=== PATIENT | female | born 1960 | race Caucasian/White ===

== ENCOUNTER 2017-05-02 16:14 | Emergency (ER) | payer BC ==
[2017-05-02] MEDS: CLINDAMYCIN 150 MG CAP PO ×2 (19:56)
[2017-05-02] MEDS: BUPIVACAINE HCL 0.5% 10 ML VIAL SC ×2 (19:56)
[2017-05-02] MEDS: PERCOCET 5MG/325MG TAB PO ×2 (20:15)
== END 2017-05-02 20:38 | disposition home or self-care (01) ==
LOC: M ED 16:14
DX: K02.9 Dental caries, unspecified (principal); K08.89 Other specified disorders of teeth and supporting structures; S02.5XXA Fracture of tooth (traumatic), initial encounter for closed fracture; X58.XXXA Exposure to other specified factors, initial encounter; Y92.9 Unspecified place or not applicable; Y93.9 Activity, unspecified; J45.909 Unspecified asthma, uncomplicated; E03.9 Hypothyroidism, unspecified; F41.9 Anxiety disorder, unspecified; M19.90 Unspecified osteoarthritis, unspecified site; Z79.899 Other long term (current) drug therapy; Z88.0 Allergy status to penicillin
CPT/HCPCS: 64400; 99283

== ENCOUNTER → 2017-06-12 | Outpatient (REF) | payer BC ==
[2017-06-12 16:22] LABS: INFLUENZA A AMPLIFICATION NEGATIVE (NEGATIVE); INFLUENZA B AMPLIFICATION NEGATIVE (NEGATIVE); RSV AMPLIFICATION NEGATIVE (NEGATIVE)
== END ==
LOC: M LAB REF 15:40
DX: J11.1 Influenza due to unidentified influenza virus with other respiratory manifestations (principal)
CPT/HCPCS: 87631

== ENCOUNTER → 2018-07-12 | Outpatient (REF) | payer BC ==
[~2018-07-12] MED LIST: ALBU2TA PO; BACL1TAB9 PO; CLEO300C2 PO; DULO30CA PO; EXCETAB80 PO; FIOR1CAP PO; FLON27.5; GLUC100020 PO; NORT50CA; ONDA4TAB5; ZONI100C2 PO
[2018-07-12 21:21] LABS: INFLUENZA A AMPLIFICATION NEGATIVE (NEGATIVE); INFLUENZA B AMPLIFICATION NEGATIVE (NEGATIVE)
== END ==
LOC: M LAB REF 18:49
PROVIDERS: ATTEND Physician Assistant
DX: J11.1 Influenza due to unidentified influenza virus with other respiratory manifestations (principal)

== ENCOUNTER → 2019-08-08 | Outpatient (CLI) | payer BC ==
[~2019-08-08] MED LIST changes: -DULO30CA PO; +DULO30CA9 PO; +ONDA-83; -ONDA4TAB5; +ZONI100C17 PO; -ZONI100C2 PO
== END ==
LOC: M LABSMTC 11:02
PROVIDERS: ATTEND Family Medicine
DX: Z11.59 Encounter for screening for other viral diseases (principal); Z20.828 Contact with and (suspected) exposure to other viral communicable diseases

== ENCOUNTER → 2019-08-17 | Outpatient (REF) | payer BC | LOC: M LAB REF 13:44 | PROVIDERS: ATTEND Physician Assistant | DX: R50.9 Fever, unspecified (principal) | CPT/HCPCS: 87486; 87581; 87633; 87798; U0002 ==

== ENCOUNTER 2020-05-28 20:09 | Emergency (ER) | payer BC ==
[~2020-05-28] VITALS: Ht 165.1 cm; Wt 97.6 kg
[2020-05-28] MEDS ORDERED: DOXY100C37 (20:26)
[2020-05-28] MEDS ORDERED: AIMO70IN2 (20:26)
[2020-05-28] MEDS ORDERED: VIRT1SOL13 (20:26)
--- OUTSIDE RECORDS SUMMARY | 2020-05-28 20:37 | CCD | Continuity of Care Document ---
Author Author Hillary BINGHAM RN CHARGE Organization Unknown Address [address] [place] [address] [place] [address] Phone [phone] Care Team Providers Care Accredited Farm Manager Name Role Phone [employer] [phone] Problems Description No Information Available Social History Type Date Description Comments Sex Unknown ETOH Use Denies alcohol use Tobacco Use Start: Unknown Patient has never smoked Tobacco Use Start: Unknown The patient has never vaped Smoking Status Reviewed: 05/17/20 The patient has never vaped Allergies, Adverse Reactions, Alerts Active Allergies Reaction Severity Comments Date Penicillins itchy 01/29/2020 Medications Active Medications SIG Qnty Indications Ordering Provide r Date Doxycycline Monohydrate 100mg Tabl ets 1 tab by mouth twice a day for 10 days 20tabs J01.10 Pepe Tolbert JR., M.D. 05/14/2020 Zonisamide 100mg Capsules bid Unknown Cymbalta 60mg Caps DR Jamie mcgrath d Unknown Glucosamine Chondroitin 1500 Complex 1500Com Capsules ad Unknown Xyzal Allergy 24HR 5mg Tablets 1 by mouth every day Unknown Super B Complex/Vitamin C Tablets Unknown Probiotic Capsules Unknown Zofran 4mg Tablets take one tablet every 8 hours for nausea/prn Unknown Fiorinal 50-325-40mg Capsules Unknown Aimovig 140mg/ml Solution Auto-Inject Unknown Albuterol Fha 90mcg/Act Aerosol 2 puffs q4hrs./prn sob or wheezing Unknown Vitamin B Complex-C Capsules Unknown Melatonin 5mg Capsules prn Unknown Immunizations Description No Information Available Vital Signs Date Vital Result Comment 05/17/2020 1:49pm BP Systolic 133 mmHg BP Diastolic 68 mmHg Heart Rate 105 /min Respiratory Rate 18 /min O2 % BldC Oximetry 98 % Body Temperature 98.3 F Weight 205.00 lb Height 65 inches 5'5" BMI (Body Mass Index) 34.1 kg/m2 Pain Level 4 05/14/2020 8:28am BP Systolic 137 mmHg BP Diastolic 85 mmHg Heart Rate 88 /min Respiratory Rate 14 /min O2 % BldC Oximetry 98 % Body Temperature 98.3 F Weight 205.00 lb Height 65 inches 5'5" BMI (Body Mass Index) 34.1 kg/m2 Pain Level 3 Results Description No Information Available Procedures Description No Information Available Medical Devices Description No Information Available Encounters Type Date Location Provider Dx Diagnosis Office Visit 05/17/2020 11:00a Main Office Priya Bingham NP J01. 10 Acute frontal sinusitis, unspecified Z20.828 Contact w and exposure to ot h viral communicable diseases Office Visit 05/14/2020 8:35a Main Office FABIOLA Gonzalez J01 .10 Acute frontal sinusitis, unspecified Z20.828 Contact w and exposure to ot h viral communicable diseases Office Visit 01/29/2020 4:10p Main Office FABIOLA Gonzalez G43 .009 Migraine w/o aura, not intractable, w/o status migrainosus Z20.828 Contact w and exposure to ot h viral communicable diseases Assessments Date Code Description Provider 05/17/2020 J01.10 Acute frontal sinusitis, unspeci fied Priya Bingham NP 05/17/2020 Z20.828 Contact with and (odell spected) exposure to other viral communicable diseases Priya Bingham NP 05/14/2020 J01.10 Acute frontal sinusitis, unspeci fied FABIOLA Gonzalez 05/14/2020 Z20.828 Contact with and (odell spected) exposure to other viral communicable diseases FABIOLA Gonzalez 01/29/2020 G43.009 Migraine without aur a, not intractable, without status migrainosus FABIOLA Gonzalez 01/29/2020 Z20.828 Contact with and (odell spected) exposure to other viral communicable diseases FABIOLA Gonzalez Plan of Treatment 05/17/2020 - Priya Bingham NP* J01.10 Acute frontal sinusitis, unspecified * Comments:* rest/time/fluidstake abx as directedMDI use reviewedcontinue OTC therapytylenol/motrin PRN for pain/feverf/u PRN or with PCPpatient v/u & agrees to plan * Z20.828 Contact with and (suspected) exposure to other viral communicable diseases* Comments:* tested for COVID-19 today via [facility] & Influenza A/B, all results were reported as negativelikely other viral etiology. infectious course & use of proper protective equipment, adequate handwashing, wearing a mask & keeping 6+ feet distance from others reviewed with patient. advised supportive care, rest/time/fluidsf/u PRNpatient v/u & agrees to plan Functional Status Description No Information Available Mental Status Description No Information Available Referrals Description No Information Available
--- OUTSIDE RECORDS SUMMARY | 2020-05-28 20:37 | CCD | Continuity of Care Document ---
Author Author Hillary WALKER PA Organization Unknown Address [address] [place] [address] [place] [address] Phone [phone] Care Team Providers Care Library Specialist Name Role Phone [place] [employer] AUTM [phone] Problems Description No Information Available Social History Type Date Description Comments Sex Unknown ETOH Use Denies alcohol use Tobacco Use Start: Unknown Patient has never smoked Tobacco Use Start: Unknown The patient has never vaped Smoking Status Reviewed: 05/25/20 The patient has never vaped Allergies, Adverse Reactions, Alerts Active Allergies Reaction Severity Comments Date Penicillins itchy 01/29/2020 Medications Active Medications SIG Qnty Indications Ordering Provide r Date Doxycycline Monohydrate 100mg Caps ules 1 cap by mouth twice a day for 7 days 14caps J01.10 Pepe greenberg JR., M.D. 05/25/2020 Cheratussin ac 100-10mg/5ML Soluti on take 5mls by mouth at at bedtime only 30ml R05 Pepe smith JR., M.D. 05/25/2020 Zonisamide 100mg Capsules bid Unknown Cymbalta 60mg Caps DR Jamie sharma Unknown Glucosamine Chondroitin 1500 Complex 1500Com Capsules [...] Capsules Unknown Melatonin 5mg Capsules prn Unknown Albuterol Sulfate 1.25mg/3ML Nebul izer one vial via nebulizer every 4-6hrs for cough/wheezing Patient has been using no more than twice a day Unknown History Medications Doxycycline Monohydrate 100mg Tabl ets 1 tab by mouth twice a day for 10 days 20tabs J01.10 Pepe Tolbert JR., M.D. 05/14/2020 - 05/25/2019 Immunizations Description No Information Available Vital Signs Date Vital Result Comment 05/25/2020 3:42pm BP Systolic 135 mmHg BP Diastolic 80 mmHg Heart Rate 114 /min Respiratory Rate 18 /min O2 % BldC Oximetry 98 % Body Temperature 98.0 F Weight 205.00 lb Height 65 inches 5'5" BMI (Body Mass Index) 34.1 kg/m2 Pain Level 2 05/17/2020 1:49pm BP Systolic 133 mmHg BP Diastolic 68 mmHg Heart Rate 105 /min Respiratory Rate 18 /min O2 % BldC Oximetry 98 % Body Temperature 98.3 F Weight 205.00 lb Height 65 inches 5'5" BMI (Body Mass Index) 34.1 kg/m2 Pain Level 4 Results Description No Information Available Procedures Description No Information Available Medical Devices Description No Information Available Encounters Type Date Location Provider Dx Diagnosis Office Visit 05/25/2020 3:00p Main Office FABIOLA Gonzalez J01 .10 Acute frontal sinusitis, unspecified R05 Cough Z20.828 Contact w and exposure to ot h viral communicable diseases Office Visit 05/17/2020 11:00a Main Office Priya Humphrey NP J01. 10 Acute frontal sinusitis, unspecified [...] communicable diseases Assessments Date Code Description Provider 05/25/2020 J01.10 Acute frontal sinusitis, unspeci fied FABIOLA Gonzalez 05/25/2020 R05 Cough FABIOLA Rueda 05/25/2020 Z20.828 Contact with and (odell spected) exposure to other viral communicable diseases FABIOLA Gonzalez 05/17/2020 J01.10 Acute frontal sinusitis, unspeci fied Priya Humphrey, OLGA 05/17/2020 Z20.828 Contact with and (odell spected) exposure to other viral communicable diseases Priya Humphrey, OLGA 05/14/2020 J01.10 Acute frontal sinusitis, unspeci fied FABIOLA Gonzalez 05/14/2020 Z20.828 Contact with and (odell spected) exposure to other viral communicable diseases FABIOLA Gonzalez 01/29/2020 G43.009 Migraine without aur a, not intractable, without status migrainosus FABIOLA Gonzalez 01/29/2020 Z20.828 Contact with and (odell spected) exposure to other viral communicable diseases FABIOLA Gonzalez Plan of Treatment No Information Available Functional Status Description No Information Available Mental Status Description No Information Available Referrals Description No Information Available
--- OUTSIDE RECORDS SUMMARY | 2020-05-28 20:37 | CCD | Continuity of Care Document ---
Author Author Hillary BINGHAM INFORMATION ASSURANCE ENGINEER Organization Unknown Address [address] [place] [address] [place] [address] Phone [phone] Care Team Providers Care Network Security Administrator Name Role Phone [employer] [phone] Problems Description No Information Available Social History [...]
--- OUTSIDE RECORDS SUMMARY | 2020-05-28 20:37 | CCD | Continuity of Care Document ---
Author Author Hillary WALKER PA Organization Unknown Address [address] [place] [address] [place] [address] Phone [phone] Care Team Providers Care Apartment Rental Clerk Name Role Phone [employer] [employer] [phone] Problems Description No Information Available Social History Type Date Description Comments Sex Unknown ETOH Use Denies alcohol use Tobacco Use Start: Unknown Patient has never smoked Tobacco Use Start: Unknown The patient has never vaped Smoking Status Reviewed: 05/14/20 The patient has never vaped Allergies, Adverse [...] Available Vital Signs Date Vital Result Comment 05/14/2020 8:28am BP Systolic 137 mmHg BP Diastolic 85 mmHg Heart Rate 88 /min Respiratory Rate 14 /min O2 % BldC Oximetry 98 % Body Temperature 98.3 F Weight 205.00 lb Height 65 inches 5'5" BMI (Body Mass Index) 34.1 kg/m2 Pain Level 3 01/29/2020 3:03pm BP Systolic 128 mmHg BP Diastolic 78 mmHg Heart Rate 82 /min Respiratory Rate 18 /min O2 % BldC Oximetry 97 % Body Temperature 98.2 F Weight 204.00 lb Height 65 inches 5'5" BMI (Body Mass Index) 33.9 kg/m2 Pain Level 4 Results Description No Information Available Procedures Description No Information Available Medical Devices Description No Information Available Encounters Type Date Location Provider Dx Diagnosis Office Visit 05/14/2020 8:35a Main Office FABIOLA Gonzalez J01 .10 Acute frontal sinusitis, unspecified Z20.828 Contact w and exposure to ot h viral communicable diseases Office Visit 01/29/2020 4:10p Main Office FABIOLA Gonzalez G43 .009 Migraine w/o aura, not intractable, w/o status migrainosus Z20.828 Contact w and exposure to ot h viral communicable diseases Assessments Date Code Description Provider 05/14/2020 J01.10 Acute frontal sinusitis, unspeci fied [...]
--- OUTSIDE RECORDS SUMMARY | 2020-05-28 20:37 | CCD | Continuity of Care Document ---
Author Author Hillary WALKER PA Organization Unknown Address [address] [place] [address] [place] [address] Phone [phone] Care Team Providers Care Potato Chip Frier Name Role Phone [employer] [employer]M [phone] Problems Description No Information Available Social History [...]
--- OUTSIDE RECORDS SUMMARY | 2020-05-28 20:38 | CCD | Continuity of Care Document ---
Author Author Hillary WALKER PA Organization Unknown Address [address] [place] [address] [place] [address] Phone [phone] Care Team Providers Care Router Operator Radial Name Role Phone [place] [employer] AUTM [phone] Problems Description No Information Available Social History [...]
--- OUTSIDE RECORDS SUMMARY | 2020-05-28 20:38 | CCD ---
Author Author [facility] Organization [facility] Address Unknown Phone Unavailable Care Team Providers Care Infrastructure Tech Name Role Phone Trickey, J Ana PA Unavailable Unavailable Trickey, J Ana PA Unavailable Unavailable Trickey, J Ana PA Unavailable Unavailable Trickey, J Ana PA Unavailable Unavailable Trickey, J Ana PA Unavailable Unavailable Trickey, J Ana PA Unavailable Unavailable Trickey, J Ana PA Unavailable Unavailable Trickey, J Ana PA Unavailable Unavailable Trickey, J Ana PA Unavailable Unavailable Trickey, J Ana PA Unavailable Unavailable Trickey, J Ana PA Unavailable Unavailable Trickey, J Ana PA Unavailable Unavailable Trickey, J Ana PA Unavailable Unavailable Trickey, J Ana PA Unavailable Unavailable Trickey, J Ana PA Unavailable Unavailable Trickey, J Ana PA Unavailable Unavailable Trickey, J Ana PA Unavailable Unavailable Trickey, J Ana PA Unavailable Unavailable Trickey, J Ana PA Unavailable Unavailable Trickey, J Ana PA Unavailable Unavailable Trickey, J Ana PA Unavailable Unavailable Trickey, J Ana PA Unavailable Unavailable Trickey, J Ana PA Unavailable Unavailable Trickey, J Ana PA Unavailable Unavailable Trickey, J Ana PA Unavailable Unavailable Trickey, J Ana PA Unavailable Unavailable Trickey, J Ana PA Unavailable Unavailable Trickey, J Ana PA Unavailable Unavailable Trickey, J Ana PA Unavailable Unavailable Trickey, J Ana PA Unavailable Unavailable Trickey, J Ana PA Unavailable Unavailable Trickey, J Ana PA Unavailable Unavailable Trickey, J Ana PA Unavailable Unavailable Trickey, J Ana PA Unavailable Unavailable Trickey, J Ana PA Unavailable Unavailable Trickey, J Ana PA Unavailable Unavailable Trickey, J Ana PA Unavailable Unavailable Trickey, J Ana PA Unavailable Unavailable Trickey, J Ana PA Unavailable Unavailable Trickey, J Ana PA Unavailable Unavailable Trickey, J Ana PA Unavailable Unavailable Trickey, J Ana PA Unavailable Unavailable Trickey, J Ana PA Unavailable Unavailable Trickey, J Ana PA Unavailable Unavailable Trickey, J Ana PA Unavailable Unavailable Trickey, J Ana PA Unavailable Unavailable Trickey, J Ana PA Unavailable Unavailable Trickey, J Ana PA Unavailable Unavailable Trickey, J Ana PA Unavailable Unavailable Trickey, J Ana PA Unavailable Unavailable Trickey, J Ana PA Unavailable Unavailable Trickey, J Ana PA Unavailable Unavailable Humphrey, Priya HOGSHEAD PACKER Unavailable Unavailable Humphrey, Priya HOGSHEAD PACKER Unavailable Unavailable Humphrey, Priya HOGSHEAD PACKER Unavailable Unavailable Humphrey, Priya HOGSHEAD PACKER Unavailable Unavailable Humphrey, Priya HOGSHEAD PACKER Unavailable Unavailable Humphrey, Priya HOGSHEAD PACKER Unavailable Unavailable Humphrey, Priya HOGSHEAD PACKER Unavailable Unavailable Humphrey, Priya HOGSHEAD PACKER Unavailable Unavailable Humphrey, Priya HOGSHEAD PACKER Unavailable Unavailable Humphrey, Priya HOGSHEAD PACKER Unavailable Unavailable Humphrey, Priya HOGSHEAD PACKER Unavailable Unavailable LETTIERE, A DAISHA PA Unavailable Unavailable LETTIERE, A DAISHA PA Unavailable Unavailable LETTIERE, A DAISHA PA Unavailable Unavailable LETTIERE, A DAISHA PA Unavailable Unavailable LETTIERE, A DAISHA PA Unavailable Unavailable LETTIERE, A DAISHA PA Unavailable Unavailable LETTIERE, A DAISHA PA Unavailable Unavailable LETTIERE, A DAISHA PA Unavailable Unavailable LETTIERE, A DAISHA PA Unavailable Unavailable LETTIERE, A DAISHA PA Unavailable Unavailable LETTIERE, A DAISHA PA Unavailable Unavailable LETTIERE, A DAISHA PA Unavailable Unavailable LETTIERE, A DAISHA PA Unavailable Unavailable LETTIERE, A DAISHA PA Unavailable Unavailable LETTIERE, A DAISHA PA Unavailable Unavailable LETTIERE, A DAISHA PA Unavailable Unavailable LETTIERE, A DAISHA PA Unavailable Unavailable LETTIERE, A DAISHA PA Unavailable Unavailable LETTIERE, A DAISHA PA Unavailable Unavailable LETTIERE, A DAISHA PA Unavailable Unavailable LETTIERE, A DAISHA PA Unavailable Unavailable LETTIERE, A DAISHA PA Unavailable Unavailable LETTIERE, A DAISHA PA Unavailable Unavailable LETTIERE, A DAISHA PA Unavailable Unavailable LETTIERE, A DAISHA PA Unavailable Unavailable LETTIERE, A DAISHA PA Unavailable Unavailable LETTIERE, A DAISHA HICKS Unavailable Unavailable LETTIERE, A DAISHA PA Unavailable Unavailable LETTIERE, A DAISHA HICKS Unavailable Unavailable Re-disclosure Warning The records that you are about to access may contain information from federally-assisted alcohol or drug abuse programs. If such information is present, then the following federally mandated warning applies: This information has been disclosed to you from records protected by federal confidentiality rules (42 CFR part 2). The federal rules prohibit you from making any further disclosure of this information unless further disclosure is expressly permitted by the written consent of the person to whom it pertains or as otherwise permitted by 42 CFR part 2. A general authorization for the release of medical or other information is NOT sufficient for this purpose. The Federal rules restrict any use of the information to criminally investigate or prosecute any alcohol or drug abuse patient.The records that you are about to access may contain highly sensitive health information, the redisclosure of which is protected by Article 27-F of the [facility] Public Health law. If you continue you may have access to information: Regarding HIV / AIDS; Provided by facilities licensed or operated by the [facility] Office of Mental Health; or Provided by the [facility] Office for People With Developmental Disabilities. If such information is present, then the following [facility] mandated warning applies: This information has been disclosed to you from confidential records which are protected by state law. State law prohibits you from making any further disclosure of this information without the specific written consent of the person to whom it pertains, or as otherwise permitted by law. Any unauthorized further disclosure in violation of state law may result in a fine or retirement sentence or both. A general authorization for the release of medical or other information is NOT sufficient authorization for further disc losure. Encounters Encounter Providers Location Date Indications Data Source(s ) Outpatient Attender: DAISHA salcido 05/25/2020 02:00:00 PM EST [facility] ([facility], [facility]) Outpatient Attender: Priya snyder 05/17/2020 10:00:00 AM EST [facility] ([facility], [facility]) Outpatient Attender: DAISHA salcido 05/14/2020 07:35:00 AM EST [facility] ([facility], [facility]) Outpatient Attender: DAISHA briggsy 01/29/2020 04:10:00 PM EDT [facility] ([facility], [facility]) Outpatient Attender: Ana HICKS Main office - [facility] n 11/27/2019 01:30:00 PM EDT [facility] ([facility]) Outpatient Attender: Ana HICKS Main office - [facility] n 08/17/2019 08:30:00 AM EDT [facility] ([facility]) Outpatient Attender: Ana HICKS [facility] office - [facility] n 05/15/2019 01:30:00 PM EST [facility] ([facility]) Medications Medication Brand Name Start Date Product Form Dose Route Admi nistrative Instructions Pharmacy Instructions Status Indications Reaction Description Data Source(s) Codeine Phosphate 2 MG/ML / Guaifenesin 20 MG/ML Oral Soluti on Cheratussin ac 05/25/2020 12:00:00 AM EST ORAL active [facility] ([facility], [facility]) Doxycycline Monohydrate 100 MG Oral Capsule Doxycycline Griggs hydrate 05/25/2020 12:00:00 AM EST ORAL active M [facility] ([facility], [facility]) Doxycycline Monohydrate 100 MG Oral Tablet Doxycycline Monoh ydrate 05/14/2020 12:00:00 AM EST ORAL completed [facility] ([facility], [facility]) Acetaminophen 325 MG / butalbital 50 MG / Caffeine 40 MG Oral Tablet Butalbital/Acetaminophen/Caffeine 05/31/2019 12:00:00 AM EST ORAL active [facility] ([facility]) Insurance Providers Payer name Policy type / Coverage type Policy ID Covered green party ID Covered green party's relationship to gutierrez Policy Gutierrez Plan Information [employer] FEDERAL EMPLOYEE PROGRAM [id number] Federal BC/BS Commercial [id number] Family Dependent [id number] EXCELLUS BC FEDERAL [id number] 2 [id number] Federal BC/BS Commercial Family Dependent BC/BS Of [place] Commercial Family Depende BC/BS (Federal) Commercial Family Dependent Excell[employer] Blue Cross Commercial Family Dependent BC BS [place] FEDERAL [id number] [place] FED[place]AL P [id number] P [id number] [place] [facility] [id number] Results ID Date Data Source [id number] 05/25/2020 12:00:00 AM EST [facility] Name Value Range Interpretation Code Description Data Alanis rce(s) Supporting Document(s) SARS coronavirus 2 Ag Negative [facility] This lab was ordered by [facility] and reported by [facility]. ID Date Data Source [id number] 08/17/2019 12:10:00 PM EDT [facility] Name Value Range Interpretation Code Description Data Alanis rce(s) Supporting Document(s) SARS CORONAVIRUS 2 RNA [facility] This lab was ordered by [facility] and reported by [facility]. ID Date Data Source [id number] 08/08/2019 11:15:00 AM EDT [facility] Name Value Range Interpretation Code Description Data Alanis rce(s) Supporting Document(s) SARS CORONAVIRUS 2 RNA [facility] This lab was ordered by [facility] and reported by [facility]. Procedure Vital Signs ID Date Data Source UNK Name Value Range Interpretation Code Description Data Source(s) Body mass index (BMI) [Ratio] 34.1 kg/m2 34.1 k g/m2 [facility] ([facility]) Body height 65 [in_i] 65 [in_i] [facility] ([facility]) 5'5" Body weight 205.00 [lb_av] 205.00 [lb_av] [facility] ([facility]) Body temperature 98.0 [degF] 98.0 [degF] [facility] ([facility]) Oxygen saturation in Arterial blood by Pulse oximetry 98 % 98 % [facility] ([facility]) Respiratory rate 18 /min 18 /min [facility] ( [facility]) Heart rate 114 /min 114 /min [facility] ([facility]) Diastolic blood pressure 80 mm[Hg] 80 mm[Hg] [facility] ([facility], [facility]) Systolic blood pressure 135 mm[Hg] 135 mm[Hg] [facility] ([facility], [facility]) Body mass index (BMI) [Ratio] 34.1 kg/m2 34.1 k g/m2 [facility] ([facility], [facility]) Body height 65 [in_i] 65 [in_i] [facility] ([facility], [facility]) 5'5" Body weight 205.00 [lb_av] 205.00 [lb_av] [facility] ([facility], [facility]) Body temperature 98.3 [degF] 98.3 [degF] [facility] ([facility], [facility]) Oxygen saturation in Arterial blood by Pulse oximetry 98 % 98 % [facility] ([facility], [facility]) Respiratory rate 18 /min 18 /min [facility] ( [facility], [facility]) Heart rate 105 /min 105 /min [facility] ([facility], [facility]) Diastolic blood pressure 68 mm[Hg] 68 mm[Hg] [facility] ([facility], [facility]) Systolic blood pressure 133 mm[Hg] 133 mm[Hg] [facility] ([facility], [facility]) Body mass index (BMI) [Ratio] 34.1 kg/m2 34.1 k g/m2 [facility] ([facility], [facility]) Body height 65 [in_i] 65 [in_i] [facility] ([facility], [facility]) 5'5" Body weight 205.00 [lb_av] 205.00 [lb_av] [facility] ([facility], [facility]) Body temperature 98.3 [degF] 98.3 [degF] [facility] ([facility], [facility]) Oxygen saturation in Arterial blood by Pulse oximetry 98 % 98 % [facility] ([facility], [facility]) Respiratory rate 14 /min 14 /min [facility] ( [facility], [facility]) Heart rate 88 /min 88 /min [facility] ([facility], [facility]) Diastolic blood pressure 85 mm[Hg] 85 mm[Hg] [facility] ([facility], [facility]) Systolic blood pressure 137 mm[Hg] 137 mm[Hg] [facility] ([facility], [facility]) Body mass index (BMI) [Ratio] 33.9 kg/m2 33.9 k g/m2 [facility] ([facility], [facility]) Body height 65 [in_i] 65 [in_i] [facility] ([facility], [facility]) 5'5" Body weight 204.00 [lb_av] 204.00 [lb_av] [facility] ([facility], [facility]) Body temperature 98.2 [degF] 98.2 [degF] [facility] ([facility], [facility]) Oxygen saturation in Arterial blood by Pulse oximetry 97 % 97 % [facility] ([facility], [facility]) Respiratory rate 18 /min 18 /min [facility] ( [facility], [facility]) Heart rate 82 /min 82 /min [facility] ([facility], [facility]) Diastolic blood pressure 78 mm[Hg] 78 mm[Hg] [facility] ([facility], [facility]) Systolic blood pressure 128 mm[Hg] 128 mm[Hg] [facility] ([facility], [facility]) Respiratory rate 16 /min 16 /min [facility] ( [facility] ) Heart rate 100 /min 100 /min [facility] ([facility] ) Diastolic blood pressure 80 mm[Hg] 80 mm[Hg] [facility] ([facility] ) Systolic blood pressure 140 mm[Hg] 140 mm[Hg] [facility] ([facility], )
--- OUTSIDE RECORDS SUMMARY | 2020-05-28 20:38 | CCD | Continuity of Care Document ---
Author Author Hillary HERNANDEZ P.A.-C. Organization Unknown Address [address] [place] [id number] Phone [phone] Care Team Providers Care Timber Sizer Name Role Phone No PCP [facility] Unavailable Problems Description No Information Available Social History Type Date Description Comments Sex Unknown Allergies, Adverse Reactions, Alerts Active Allergies Reaction Severity Comments Date Maxalt severe nausea 07/14/2010 Imitrex syncope 07/14/2010 Intranasal Steroids epistaxis and increased headaches 01/18/2012 Depakote made headaches worse 013 Nuts 09/05/2013 Hay Fever 10/09/2014 Medications Active Medications SIG Qnty Indications Ordering Provide r Date Butalbital/Acetaminophen/Caffeine 50-325-40mg Tablets take 1 tablet by mouth at onset of uncon trolled migraine maximum daily dose = 2 30tabs Miguel Birmingham M.D. 05/31/2019 Aimovig 140mg/ml Solution Auto-Inj ect Inject Subcutaneously Once A Month 1units G43.709 Miguel Birmingham M.D. 02/12/2019 Zonisamide 100mg Capsules Take 1 Capsule By Mouth Twice Daily. Maximum Daily Dose Is 2. 60caps M54.5 Nacho Birmingham M.D. 08/19/2016 Ondansetron HCL 4mg Tablets Take One Tablet By Mouth as Needed For Nausea* Maximum Daily Dose Is 2 Tablets* 30tabs G43.809 Miguel Birmingham M.D. 02/08/[address] H[address] 60[address] C[address] Part Take 1 Capsule By Mouth Twice Daily. Maximum Daily Dose Is 2. 60caps Miguel Birmingham M.D. 05/25/2013 Immunizations Description No Information Available Vital Signs Date Vital Result Comment 05/15/2019 4:27pm BP Systolic 140 mmHg BP Diastolic 80 mmHg Heart Rate 100 /min Respiratory Rate 16 /min 02/12/2019 5:45am BP Systolic 110 mmHg BP Diastolic 80 mmHg Heart Rate 80 /min Respiratory Rate 16 /min Results Description No Information Available Procedures Description No Information Available Medical Devices Description No Information Available Encounters Type Date Location Provider Dx Diagnosis Office Visit 11/27/2019 1:30p Main office - [place] Ana villa P.A.-C. G43.709 Chronic migraine w/o aura, not intractab le, w/o stat migr F41.1 Generalized anxiety disorder F32.89 Other specified depressive e pisodes G47.33 Obstructive sleep apnea (otilia lt) (pediatric) Assessments Date Code Description Provider 03/12/2020 G43.709 Chronic migraine wit hout aura, not intractable, without status migrainosus Ana Hernandez, P.A.-C. 03/12/2020 G47.33 Obstructive sleep apnea (adult) (pediatric) Ana Hernandez P.A.-C. 03/12/2020 F41.1 Generalized anxiety disorder Syl Hernandez, P.A.-C. 03/12/2020 F32.89 Other specified depressive episo mariya Ana Hernandez, P.A.-C. 11/27/2019 G43.709 Chronic migraine wit hout aura, not intractable, without status migrainosus Ana Hernandez, P.A.-C. 11/27/2019 F41.1 Generalized anxiety disorder Syl Hernandez, P.A.-C. 11/27/2019 F32.89 Other specified depressive episo mariya Ana Hernandez, P.A.-C. 11/27/2019 G47.33 Obstructive sleep apnea (adult) (pediatric) Ana Hernandez, P.A.-C. Plan of Treatment No Information Available Functional Status Description No Information Available Mental Status Description No Information Available Referrals Description No Information Available
--- OUTSIDE RECORDS SUMMARY | 2020-05-28 21:14 | CCD ---
Author Author [facility] Organization [facility] Address Unknown Phone Unavailable Care Team Providers Care Merchandise Team Manager Name Role Phone Trickey, J Ana PA [...] J Ana PA Unavailable Unavailable Humphrey, Priya TIME RECORDER Unavailable Unavailable Humphrey, Priya TIME RECORDER Unavailable Unavailable Humphrey, Priya TIME RECORDER Unavailable Unavailable Humphrey, Priya TIME RECORDER Unavailable Unavailable Humphrey, Priya TIME RECORDER Unavailable Unavailable Humphrey, Priya TIME RECORDER Unavailable Unavailable Humphrey, Priya TIME RECORDER Unavailable Unavailable Humphrey, Priya TIME RECORDER Unavailable Unavailable Humphrey, Priya TIME RECORDER Unavailable Unavailable Humphrey, Priya TIME RECORDER Unavailable Unavailable Humphrey, Priya TIME RECORDER Unavailable Unavailable LETTIERE, A DAISHA PA Unavailable [...] Unavailable LETTIERE, A DAISHA PA Unavailable Unavailable Re-disclosure Warning The records that [...] is protected by Article 27-F of the [facility] Public Health law. If you continue you may have access to information: Regarding HIV / AIDS; Provided by facilities licensed or operated by the [facility] Office of Mental Health; or Provided by the [facility] Office for People With Developmental Disabilities. If such information is present, then the following [facility] mandated warning applies: This information has been [...] law may result in a fine or longterm sentence or both. A general authorization for the release of medical or other information is NOT sufficient authorization for further disc losure. Encounters Encounter Providers Location Date Indications Data Source(s ) Outpatient Attender: DAISHA salcido 05/25/2020 02:00:00 PM EST [facility] ([facility], [facility]) Outpatient Attender: Priya snyder 05/17/2020 10:00:00 AM EST [facility] ([facility], [facility]) Outpatient Attender: DAISHA Salazardemetrio Rucker Prim omari 05/14/2020 07:35:00 AM EST [facility] ([facility], [facility]) Outpatient Attender: DAISHA Salazardemetrio Rucker Prim omari 01/29/2020 04:10:00 PM EDT [facility] ([facility], [facility]) Outpatient Attender: Ana HICKS Main office - [facility] n 11/27/2019 01:30:00 PM EDT [facility] ([facility], ) Outpatient Attender: Ana HICKS Main office - [facility] n 08/17/2019 08:30:00 AM EDT [facility] ([facility], ) Outpatient Attender: Ana HICKS Main office - [facility] n 05/15/2019 01:30:00 PM EST [facility] ([facility], ) Medications Medication Brand Name Start Date Product Form Dose Route Admi nistrative Instructions Pharmacy Instructions Status Indications Reaction Description Data Source(s) Codeine Phosphate 2 MG/ML / Guaifenesin 20 MG/ML Oral Soluti on Cheratussin ac 05/25/2020 12:00:00 AM EST ORAL active [facility] ([facility]) Doxycycline Monohydrate 100 MG Oral Capsule Doxycycline [place] hydrate 05/25/2020 12:00:00 AM EST ORAL active M [facility] ([facility]) Doxycycline Monohydrate 100 MG Oral Tablet Doxycycline Monoh ydrate 05/14/2020 12:00:00 AM EST ORAL completed [facility] ([facility]) Acetaminophen 325 MG / butalbital 50 MG / Caffeine 40 MG Oral Tablet Butalbital/Acetaminophen/Caffeine 05/31/2019 12:00:00 AM EST ORAL active [facility] ([facility], ) Insurance Providers Payer name Policy type / Coverage type Policy ID Covered constitution party ID Covered constitution party's relationship to gutierrez Policy Gutierrez Plan Information [facility] FEDERAL EMPLOYEE PROGRAM [id number] [facility] BC/BS Commercial [id number] Family Dependent [id number] [facility] [id number] [facility]/BS Commercial Family Dependent BC/BS [facility] Commercial Family Depende nt BC/BS (Federal) Commercial Family Dependent [employer] Commercial Family Dependent BC BS [facility] FEDERAL [id number] BC BS [place] [facility] P [id number] P [id number] BC BS [place] [facility] FEDERAL [id number] Results ID Date Data Source [id number] 05/25/2020 12:00:00 AM EST [facility] Name Value Range Interpretation Code Description Data Alanis rce(s) Supporting Document(s) SARS coronavirus 2 Ag Negative [facility] This lab was ordered by [facility] and reported by [facility]. ID Date Data Source [id number] 08/17/2019 12:10:00 PM EDT [facility] Name Value Range Interpretation Code Description Data Alanis rce(s) Supporting Document(s) SARS CORONAVIRUS 2 RNA [facility] This lab was ordered by [facility] and reported by [facility]. ID Date Data Source [id number] 08/08/2019 11:15:00 AM EDT [facility] Name Value Range Interpretation Code Description Data Alanis rce(s) Supporting Document(s) SARS CORONAVIRUS 2 RNA [facility] This lab was ordered by [facility] and reported by [facility]. Procedure Vital Signs ID Date Data Source UNK Name Value Range Interpretation Code Description Data Source(s) Body mass index (BMI) [Ratio] 34.1 kg/m2 34.1 k g/m2 [facility] ([facility]) Body height 65 [in_i] 65 [in_i] [facility] ([facility]) 5'5" Body weight 205.00 [lb_av] 205.00 [lb_av] [facility] ([facility]) Body temperature 98.0 [degF] 98.0 [degF] [facility] ([facility]) Oxygen saturation in Arterial blood by Pulse oximetry 98 % 98 % [facility] ([facility]) Respiratory rate 18 /min 18 /min [facility] ( [facility]) Heart rate 114 /min 114 /min [facility] ([facility], [facility]) Diastolic blood pressure 80 mm[Hg] 80 mm[Hg] [facility]) Systolic blood pressure 135 mm[Hg] 135 mm[Hg] [facility] ([facility], [facility]) Body mass index (BMI) [Ratio] 34.1 kg/m2 34.1 k g/m2 [facility] ([facility], [facility]) Body height 65 [in_i] 65 [in_i] [facility] ([facility], [facility]) 5'5" Body weight 205.00 [lb_av] 205.00 [lb_av] [facility] ([facility], [facility]) Body temperature 98.3 [degF] 98.3 [degF] [facility] ([facility], [facility]) Oxygen saturation in Arterial blood by Pulse oximetry 98 % 98 % [facility] ([facility], [facility]) Respiratory rate 18 /min 18 /min [facility] ( [facility], [facility]) Heart rate 105 /min 105 /min [facility]) Diastolic blood pressure 68 mm[Hg] 68 mm[Hg] [facility] ([facility], [facility]) Systolic blood pressure 133 mm[Hg] 133 mm[Hg] [facility] ([facility], [facility]) Body mass index (BMI) [Ratio] 34.1 kg/m2 34.1 k g/m2 [facility] ([facility], [facility]) Body height 65 [in_i] 65 [in_i] [facility] ([facility], [facility]) 5'5" Body weight 205.00 [lb_av] 205.00 [lb_av] [facility] ([facility], [facility]) Body temperature 98.3 [degF] 98.3 [degF] [facility] ([facility], [facility]) Oxygen saturation in Arterial blood by Pulse oximetry 98 % 98 % [facility] ([facility], [facility]) Respiratory rate 14 /min 14 /min [facility] ( [facility], [facility]) Heart rate 88 /min 88 /min [facility] ([facility], [facility]) Diastolic blood pressure 85 mm[Hg] 85 mm[Hg] [facility] ([facility], [facility]) Systolic blood pressure 137 mm[Hg] 137 mm[Hg] [facility] ([facility], [facility]) Body mass index (BMI) [Ratio] 33.9 kg/m2 33.9 k g/m2 [facility] ([facility], [facility]) Body height 65 [in_i] 65 [in_i] [facility] ([facility], [facility]) 5'5" Body weight 204.00 [lb_av] 204.00 [lb_av] [facility], [facility]) Body temperature 98.2 [degF] 98.2 [degF] [facility] ([facility], [facility]) Oxygen saturation in Arterial blood by Pulse oximetry 97 % 97 % [facility] ([facility], [facility]) Respiratory rate 18 /min 18 /min [facility] ( [facility], [facility]) Heart rate 82 /min 82 /min [facility] ([facility], [facility]) Diastolic blood pressure 78 mm[Hg] 78 mm[Hg] [facility] ([facility], [facility]) Systolic blood pressure 128 mm[Hg] 128 mm[Hg] [facility] ([facility], [facility]) Respiratory rate 16 /min 16 /min [facility] ( [facility], ) Heart rate 100 /min 100 /min [facility] ([facility], ) Diastolic blood pressure 80 mm[Hg] 80 mm[Hg] [facility] ([facility], ) Systolic blood pressure 140 mm[Hg] 140 mm[Hg] [facility] ([facility], )
[2020-05-28 22:51] LABS: BASO # 0.1 10^3/uL (0.0-0.2); BASO % 0.6 % (0.0-1.0); EOS # 0.2 10^3/uL (0.0-0.5); HEMATOCRIT 40.7 % (36.0-47.0); HEMOGLOBIN 13.2 g/dl (12.0-15.5); LYMPH # 2.7 10^3/uL (1.5-5.0); LYMPH % 27.5 % (24.0-44.0); MEAN CORPUSCULAR HEMOGLOBIN 30.4 pg (27.0-33.0); MEAN CORPUSCULAR HGB CONC 32.4 g/dl (32.0-36.5); MEAN CORPUSCULAR VOLUME 93.8 fl (80.0-96.0); MONO # 0.6 10^3/uL (0.0-0.8); MONO % 6.4 % (0.0-5.0); NEUTROPHILS # 6.2 10^3/uL (1.5-8.5); NEUTROPHILS % 63.1 % (36.0-66.0); PLATELET COUNT, AUTOMATED 366 10^3/uL (150-450); RED BLOOD COUNT 4.34 10^6/uL (4.00-5.40); WHITE BLOOD COUNT 9.8 10^3/uL (4.0-10.0)
[2020-05-28 23:02] LABS: INR 0.96
--- NOTE | 2020-05-28 23:02 | REPVR ---
PROCEDURE INFORMATION: Exam: XR Chest, 2 Views Exam date and time: 05/28/2020 10:22 PM Age: 60 years old Clinical indication: Other: SOB cough; Additional info: Cough, SOB, 14 days TECHNIQUE: Imaging protocol: XR of the chest Views: 2 views. COMPARISON: No relevant prior studies available. FINDINGS: Lungs: The lungs appear clear. There is mild peribronchial cuffing which can be seen with previous or current changes of bronchitis. There is no evidence of localized infiltrate. Pleural spaces: There is no evidence of pneumothorax or pleural effusion. Heart/Mediastinum: The heart is normal in size. Bones/joints: There is mild scoliosis of thoracic spine convexity to the right. IMPRESSION: Mild peribronchial cuffing otherwise clear appearing lungs. Electronically signed by: Riccardo Cannon On 05/28/2020 23:02:08 PM
[2020-05-28 23:03] LABS: PARTIAL THROMBOPLASTIN TIME 27.7 SECONDS (24.2-38.5)
[2020-05-28 23:05] LABS: D-DIMER QUANT 330.21 ng/ml (<500)
[2020-05-28] MEDS ORDERED: COMBIVENT RESPIMAT 100-20MCG INHALER 4GM INH STA (23:16)
[2020-05-28 23:20] LABS: ALBUMIN 4.2 GM/DL (3.2-5.2); ALT/SGPT 24 U/L (12-78); BILIRUBIN,DIRECT < 0.1 MG/DL (0.0-0.2); BILIRUBIN,TOTAL 0.2 MG/DL (0.2-1.0); CK-MB VALUE MASS < 1.0 NG/ML (<3.6); CPK CREATINE PHOSPHOKINASE 81 U/L (26-192); LIPASE 185 U/L (73-393); MB/CK RELATIVE INDEX 1.23 (< OR =4); TOTAL PROTEIN 7.3 GM/DL (6.4-8.2); TROPONIN I < 0.02 NG/ML (< 0.10)
[2020-05-28 23:22] LABS: MONO REFLEX EBV COMP NEGATIVE (NEGATIVE)
[2020-05-29] MEDS ORDERED: COMBAER6 INH (00:36)
--- NOTE | 2020-05-29 01:04 | REPVR ---
PROCEDURE INFORMATION: Exam: CT Head Without Contrast Exam date and time: 05/28/2020 10:22 PM Age: 60 years old Clinical indication: Pain; Headache not specified; Additional info: Dizziness, severe headache, sinus pain 14 days TECHNIQUE: Imaging protocol: Computed tomography of the head without contrast. Radiation optimization: All CT scans at this facility use at least one of these dose optimization techniques: automated exposure control; mA and/or kV adjustment per patient size (includes targeted exams where dose is matched to clinical indication); or iterative reconstruction. COMPARISON: No relevant prior studies available. FINDINGS: Brain: Normal. No hemorrhage. Unremarkable white matter. No mass effect. Cerebral ventricles: No ventriculomegaly. Bones/joints: Unremarkable. No acute fracture. Paranasal sinuses: Visualized sinuses are unremarkable. No fluid levels. Mastoid air cells: Visualized mastoid air cells are well aerated. Soft tissues: Unremarkable. IMPRESSION: No acute intracranial abnormality. Electronically signed by: Miah Quiroz On 05/29/2020 01:04:12 AM
[2020-05-29 01:15] VITALS: BP 126/68
--- NOTE | 2020-05-29 05:37 | ECGEPIP ---
[facility] - ED Test Date: 2020-05-28 Pat Name: REY SOTO Department: Room: - Gender: Female Ladler: LR : 1960 Requested By: OBDULIO Qiu PA-C Order Number: [id number] Reading MD: Max Dodson Measurements Intervals [place] Rate: 98 P: VT: 0 QRS: 5 QRSD: 89 T: 49 QT: 353 QTc: 451 Interpretive Statements SINUS RHYTHM POSSIBLE INCOMPLETE RIGHT BUNDLE BRANCH BLOCK NO PRIORS FOR COMPARISON Electronically Signed on 05-29-2020 5:37:19 EST by Max Dodson
[2020-05-30 16:08] LABS: EBV AB TO NUCLEAR ANTIGEN <18.0 U/mL (0.0-17.9); EBV VIRAL CAPSID AG IgG 99.2 U/mL (0.0-17.9); EBV VIRAL CAPSID AG IgM <36.0 U/mL (0.0-35.9); Lyme Disease IgG/IgM Antibodie <0.91 ISR (0.00-0.90); Lyme Disease IgM Ab Quantitati <0.80 index (0.00-0.79)
== END 2020-05-29 01:39 | disposition home or self-care (01) ==
LOC: M ED 20:09
DX: J20.9 Acute bronchitis, unspecified (principal); R51.9 Headache, unspecified; J02.9 Acute pharyngitis, unspecified; R53.83 Other fatigue; Z20.822 Contact with and (suspected) exposure to COVID-19; J45.909 Unspecified asthma, uncomplicated; Z88.0 Allergy status to penicillin; Z79.51 Long term (current) use of inhaled steroids; Z79.899 Other long term (current) drug therapy
CPT/HCPCS: 36415; 70450; 71046; 80047; 80076; 82550; 82553; 83690; 84484; 85025; 85379; 85610; 85730; 86308; 86617; 86664; 86665; 86850; 86900; 86901; 87880; 93005; 93041; 94640; 94760; 99285; U0003

== ENCOUNTER → 2021-04-11 | Outpatient (REF) | payer BC ==
[~2021-04-11] MED LIST changes: +AIMO70IN2; +COMBAER6 INH; +DOXY-443; +VIRT1SOL13
== END ==
LOC: M LAB REF 13:12
PROVIDERS: ATTEND Physician Assistant
DX: Z20.828 Contact with and (suspected) exposure to other viral communicable diseases (principal)